=== PATIENT | male | born 1985 | race Caucasian/White ===

== ENCOUNTER 2022-05-20 11:17 | Emergency (ER) | payer OTHER, SELFPAY ==
--- NOTE | ~2022-05-20 | XR_ITS ---
XR hand LT min 3V 05/20/2022 11:40 INDICATION: Left hand pain PROCEDURE: 3 views left hand COMPARISON: No prior studies for comparison. FINDINGS: Fracture, dislocation or subluxation is not identified. The soft tissues appear within norm al limits. No foreign bodies are identified. IMPRESSION: 1: NO ACUTE BONE OR JOINT ABNORMALITY IDENTIFIED. Reviewed, dictated and finalized at location A.
[2022-05-20 11:25] VITALS: BP 135/84; PULSE 97; RESP 22; TEMP 36.8; O2SAT 94
[2022-05-20 11:39] VITALS: BP 135/84; PULSE 97; RESP 22; TEMP 36.8; O2SAT 94
--- NOTE | 2022-05-20 11:58 | ED.GENADULT ---
HPI - General Adult General Chief complaint: Extremity Problem,Nontraumatic Stated complaint: Left Hand Pain Source: patient Mode of arrival: ambulatory Limitations: no limitations History of Present Illness HPI narrative: Patient presents for evaluation of left hand pain for the last week. He cannot identify any precipitating cause or injury. Pain is primarily in the left thumb and shoots from proximal to distal aspect of that digit. He also has symptoms in the left index finger. He reports the pain to be sharp and shooting, rated 8 out of 10 in severity. No loss of range of motion. He does have some numbness and tingling in the affected digit. He is right-hand dominant. He tried taking 800 mg of ibuprofen without considerable improvement in his symptoms or after. Related Data Home Medications Medication Instructions Recorded Confirmed buspirone 10 mg tablet mg 05/20/22 empagliflozin 25 mg tablet mg 05/20/22 (Jardiance) glipizide 10 mg tablet mg 05/20/22 insulin aspart U-100 100 unit/mL subcut 05/20/22 (3 mL) subcutaneous pen (Novolog Flexpen U-100 Insulin aspart) insulin glargine 100 unit/mL (3 unit subcut 05/20/22 mL) subcutaneous pen (Lantus Solostar U-100 Insulin) ipratropium 0.5 mg-albuterol 3 mg ml inhalation 05/20/22 (2.5 mg base)/3 mL nebulization soln metformin 500 mg tablet mg 05/20/22 omeprazole 20 mg capsule,delayed mg 05/20/22 release rosuvastatin 10 mg tablet mg 05/20/22 Allergies Allergy/AdvReac Type Severity Reaction Status Date / Time lorazepam [From Ativan] AdvReac Dizziness Verified 05/20/22 11:37 Review of Systems Review of Systems: CONSTITUTIONAL: Denies fever, chills, or sweats. EYES: Denies visual changes, redness, or discharge. ENT: Denies rhinorrhea, congestion, sore throat, or otalgia. CARDIOVASCULAR: Denies chest pain, palpitations, or edema. RESPIRATORY: Denies cough or dyspnea. GASTROINTESTINAL: Denies abdominal pain, nausea, vomiting, or diarrhea. GENITOURINARY: Denies dysuria or hematuria. SKIN: Denies rash or itching. MUSCULOSKELETAL: Reports pain in left thumb NEUROLOGIC: Reports numbness and tingling in left thumb and index finger. Denies headache, dizziness, or weakness. PSYCHIATRIC: Denies anxiety or depression. [facility] Past Medical History Medical History COPD (chronic obstructive pulmonary disease) Diabetes Surgical History Surgical History History of inguinal hernia repair Family History Family History Mother Family history non-contributory Social History Social History (Updated 05/20/22 @ 12:03 by CLEMENCIA Trent, ) Living arrangements: with family Gender identity (if verbalized by the patient): Male Spiritual care concerns: No Exam Narrative: GENERAL: Well-appearing, well-nourished, and in no acute distress. HEAD: Normocephalic, atraumatic. EYES: PERRLA and EOMI. ENT: Nares clear, no rhinorrhea or epistaxis. Mucous membranes moist. Oropharynx without tonsillar hypertrophy exudate or other lesions. Bilateral TMs pearly pink nonbulging NECK: Supple. No adenopathy or masses. No carotid bruits or JVD CHEST:O2 at 3 L NC. Clear to auscultation. No respiratory distress. No wheezes rales or rhonchi HEART: Regular rate and rhythm. No murmur heard. Normal peripheral pulses. ABDOMEN: Soft, nontender, nondistended, normal active bowel sounds. EXTREMITIES: Full range of motion of the left thumb and left index finger. No crepitus or deformity. No tenderness in either digit. Positive Tinel sign. Positive Phalen sign. SKIN: Warm, dry, no rash. NEURO: No focal deficits. Alert and oriented x3. PSYCH: Normal mood and affect. Course Course Emergency Course: This is a 36-year-old male that presented for evaluation of pain in the left t
== END 2022-05-20 12:19 | disposition home or self-care (01) ==
PROVIDERS: Emergency Provider Nurse Practitioner; PCP Nurse Practitioner Family
DX: M25.542 Pain in joints of left hand (principal); R20.2 Paresthesia of skin; J44.9 Chronic obstructive pulmonary disease, unspecified; E11.9 Type 2 diabetes mellitus without complications
CPT/HCPCS: 73130; 99213; G0463

== ENCOUNTER 2022-06-21 12:33 | Emergency (ER) | payer OTHER, SELFPAY ==
--- NOTE | 2022-06-21 12:41 | ED.BACK ---
HPI - Back Pain/Injury General Chief Complaint: Back Pain/Injury Stated Complaint: Back pain Time Seen by Provider: 06/21/22 12:41 Source: patient and RN notes reviewed History of Present Illness HPI Narrative: Patient is a 37-year-old male who presents to urgent care with complaints of mid back pain radiating to the lower back. Patient states that he noticed approximately 3-4 days ago. He has been taking Tylenol and ibuprofen without much relief. States that he did have a minor fall going up the stairs and catching himself. Otherwise denies of any known injuries or any recent strenuous activity. No other acute complaints. Patient aware of the plan of care. Some parts of this dictation were generated by voice recognition software and may contain typographical and/or grammatical inaccuracies. Related Data Home Medications Medication Instructions Recorded Confirmed buspirone 10 mg tablet 10 mg PO DAILY 05/20/22 06/21/22 empagliflozin 25 mg tablet 25 mg PO DAILY 05/20/22 06/21/22 (Jardiance) glipizide 10 mg tablet 10 mg PO DAILY 05/20/22 06/21/22 insulin aspart U-100 100 unit/mL 30 sliding scale dose subcut 05/20/22 06/21/22 (3 mL) subcutaneous pen (Novolog DIRECTED Flexpen U-100 Insulin aspart) insulin glargine 100 unit/mL (3 100 unit subcut DAILY 05/20/22 06/21/22 mL) subcutaneous pen (Lantus Solostar U-100 Insulin) ipratropium 0.5 mg-albuterol 3 mg 3 ml inhalation PRN PRN Dyspnea 05/20/22 06/21/22 (2.5 mg base)/3 mL nebulization soln metformin 500 mg tablet 500 mg PO DAILY 05/20/22 06/21/22 omeprazole 20 mg capsule,delayed 20 mg PO DAILY 05/20/22 06/21/22 release rosuvastatin 10 mg tablet 10 mg PO DAILY 05/20/22 06/21/22 Allergies Allergy/AdvReac Type Severity Reaction Status Date / Time lorazepam [From Ativan] AdvReac Dizziness Verified 05/20/22 11:37 Review of Systems Review of Systems: CONSTITUTIONAL: Denies fever, chills, or sweats. EYES: Denies visual changes, redness, or discharge. ENT: Denies rhinorrhea, congestion, sore throat, or otalgia. CARDIOVASCULAR: Denies chest pain, palpitations, or edema. RESPIRATORY: Denies cough or dyspnea. GASTROINTESTINAL: Denies abdominal pain, nausea, vomiting, or diarrhea. GENITOURINARY: Denies dysuria or hematuria. SKIN: Denies rash or itching. MUSCULOSKELETAL: Report of mid back pain radiating to the lower back NEUROLOGIC: Denies headache, numbness, or weakness. All other systems reviewed are negative, except as documented in HPI. [facility] Past Medical History Medical History COPD (chronic obstructive pulmonary disease) Diabetes Surgical History Surgical History History of inguinal hernia repair Family History Family History Mother Family history non-contributory Social History Social History (Updated 05/20/22 @ 12:03 by CLEMENCIA Trent, ) Gender identity (if verbalized by the patient): Male Spiritual care concerns: No Comments At the time of my signature, I reviewed and agree with the nursing past medical, surgical, social, and family history. There is no relevant family history pertinent to the patient complaint. Exam Narrative: GENERAL: This is a well-nourished, well-developed patient, in no apparent distress. HEAD: normocephalic, atraumatic. EYES: PERRL. Sclera clear/white. Vision is grossly intact. EARS: External ears normal NOSE: External nose normal with no obvious nasal discharge, nares without redness, no rhinorrhea. THROAT: Mucous membranes moist NECK: Neck supple RESPIRATORY: diminished throughout with slight crackles-history of COPD and current use of oxygen via nasal cannula SKIN: warm, intact with no suspicious lesions or rash, good texture and turgor. NEURO: awake, alert, and oriented to person, place and time. T
[2022-06-21 12:55] VITALS: BP 134/67; PULSE 92; RESP 18; TEMP 36.6; O2SAT 96
== END 2022-06-21 13:17 | disposition home or self-care (01) ==
PROVIDERS: Emergency Provider Nurse Practitioner Family; PCP Nurse Practitioner Family
DX: M54.6 Pain in thoracic spine (principal); J44.9 Chronic obstructive pulmonary disease, unspecified; E11.9 Type 2 diabetes mellitus without complications
CPT/HCPCS: 99213; G0463

== ENCOUNTER 2022-07-22 15:44 | Emergency (ER) | payer OTHER, SELFPAY ==
[2022-07-22 16:13] VITALS: BP 138/85; PULSE 117; RESP 16; TEMP 37.2; O2SAT 95
--- NOTE | 2022-07-22 17:39 | ED.URI ---
HPI - URI/Sore Throat General Chief Complaint: Upper Respiratory Infection Stated Complaint: chills upper respiratory Source: patient Mode of arrival: ambulatory Limitations: no limitations History of Present Illness HPI Narrative: 37-year-old male presents to [facility] with complaints of body aches, chills, headache, nasal congestion sinus pressure since yesterday. Patient reports that he finished a Medrol Dosepak 2 days ago that he received from a local emergency room due to shortness of breath. Patient is on continuous oxygen due to history of COPD. Patient is an ex-smoker. Patient denies recent travel. Patient denies nausea, vomiting, diarrhea, shortness of breath or wheezing. MD elicited complaint: cough, rhinorrhea and nasal congestion Pertinent past history: COPD Onset (ago): day(s) (1) Relieving factors: nothing Treatments prior to arrival: acetaminophen and ibuprofen Related Data Home Medications Medication Instructions Recorded Confirmed buspirone 10 mg tablet 10 mg PO DAILY 05/20/22 07/22/22 empagliflozin 25 mg tablet 25 mg PO DAILY 05/20/22 07/22/22 (Jardiance) glipizide 10 mg tablet 10 mg PO DAILY 05/20/22 07/22/22 insulin aspart U-100 100 unit/mL 30 sliding scale dose subcut 05/20/22 07/22/22 (3 mL) subcutaneous pen (Novolog DIRECTED Flexpen U-100 Insulin aspart) insulin glargine 100 unit/mL (3 100 unit subcut DAILY 05/20/22 07/22/22 mL) subcutaneous pen (Lantus Solostar U-100 Insulin) ipratropium 0.5 mg-albuterol 3 mg 3 ml inhalation PRN PRN Dyspnea 05/20/22 07/22/22 (2.5 mg base)/3 mL nebulization soln metformin 500 mg tablet 500 mg PO DAILY 05/20/22 07/22/22 omeprazole 20 mg capsule,delayed 20 mg PO DAILY 05/20/22 07/22/22 release rosuvastatin 10 mg tablet 10 mg PO DAILY 05/20/22 07/22/22 Allergies Allergy/AdvReac Type Severity Reaction Status Date / Time lorazepam [From Ativan] AdvReac Dizziness Verified 07/22/22 17:24 Review of Systems Constitutional: Constitutional: Reports chills, Reports fatigue, Denies fever(s) and Denies weakness ENT: Denies vertigo and Denies dizziness Cardiovascular: Cardiovascular: Denies chest pain Respiratory: Respiratory: Reports cough, Denies dyspnea and Denies wheezing Gastrointestinal: Gastrointestinal: Denies diarrhea, Denies nausea and Denies vomiting Integumentary/Breasts: Skin/Breast: Denies rash Neurologic: Denies dizziness and Denies syncope Allergic/Immunologic: Allergic/Immunologic: Denies lip swelling, Denies throat swelling, Denies tongue swelling and Denies wheezing PMFSH Past Medical History Medical History COPD (chronic obstructive pulmonary disease) Diabetes Surgical History Surgical History History of inguinal hernia repair Family History Family History Mother Family history non-contributory Social History Social History Gender identity (if verbalized by the patient): Male Spiritual care concerns: No Comments At time of signature, I agree with nursing past medical, surgical, social and family history. There is no relevant family history pertinent to the presenting complaint. Exam Const: General: healthy appearing, no acute distress and alert Nutritional Appearance: well nourished Orientation/consciousness: patient oriented x3 Limitations: no limitations Other: Patient wearing oxygen at time of exam HENMT: Head: normal to inspection Ears: external ears normal, TM's normal bilaterally and EAC's normal Face/Nose/Sinus: Normal external nose present and Normal nares present Face and sinus: normal facial exam Mouth: Yes Normal oral and palatal mucosa present and Yes moist mucous membranes Teeth and gingiva: dentition normal Throat: posterior oropharynx normal and uvula midline
== END 2022-07-22 17:45 | disposition home or self-care (01) ==
PROVIDERS: Emergency Provider Nurse Practitioner Family; PCP Nurse Practitioner Family
DX: B34.9 Viral infection, unspecified (principal); J44.9 Chronic obstructive pulmonary disease, unspecified; Z99.81 Dependence on supplemental oxygen; E11.9 Type 2 diabetes mellitus without complications; Z87.891 Personal history of nicotine dependence
CPT/HCPCS: 87804; 99213; G0463

== ENCOUNTER 2022-09-23 13:00 | Emergency (ER) | payer OTHER, SELFPAY ==
--- NOTE | 2022-09-23 13:05 | ED.URI ---
HPI - URI/Sore Throat General Chief Complaint: Upper Respiratory Infection Stated Complaint: cold Time Seen by Provider: 09/23/22 13:29 Source: patient and RN notes reviewed Mode of arrival: ambulatory Limitations: no limitations History of Present Illness HPI Narrative: 37-year-old male with history of COPD on 3 L of oxygen presents with concern for productive cough, sore throat for 2 days. He denies known sick contacts. He reports he has a nebulizer that he uses at home, has not had an increase in need for that. MD elicited complaint: cough and sore throat Related Data Home Medications Medication Instructions Recorded Confirmed buspirone 10 mg tablet 10 mg PO DAILY 05/20/22 07/22/22 empagliflozin 25 mg tablet 25 mg PO DAILY 05/20/22 07/22/22 (Jardiance) glipizide 10 mg tablet 10 mg PO DAILY 05/20/22 07/22/22 insulin aspart U-100 100 unit/mL 30 sliding scale dose subcut 05/20/22 07/22/22 (3 mL) subcutaneous pen (Novolog DIRECTED FlexPen U-100 Insulin aspart) insulin glargine 100 unit/mL (3 100 unit subcut DAILY 05/20/22 07/22/22 mL) subcutaneous pen (Lantus Solostar U-100 Insulin) ipratropium 0.5 mg-albuterol 3 mg 3 ml inhalation PRN PRN Dyspnea 05/20/22 07/22/22 (2.5 mg base)/3 mL nebulization soln metformin 500 mg tablet 500 mg PO DAILY 05/20/22 07/22/22 omeprazole 20 mg capsule,delayed 20 mg PO DAILY 05/20/22 07/22/22 release rosuvastatin 10 mg tablet 10 mg PO DAILY 05/20/22 07/22/22 albuterol sulfate 2.5 mg/3 mL mg 09/23/22 (0.083 %) solution for nebulization budesonide 0.5 mg/2 mL suspension mg 09/23/22 for nebulization Allergies Allergy/AdvReac Type Severity Reaction Status Date / Time lorazepam [From Ativan] AdvReac Dizziness Verified 07/22/22 17:24 Review of Systems Review of Systems: CONSTITUTIONAL: Reports malaise. Denies chills, sweats, or fever. EYES: Denies visual changes, redness, or discharge. ENT: Reports rhinorrhea, congestion, sore throat. Denies sinus pain, otalgia CARDIOVASCULAR: Denies chest pain, palpitations, or edema. RESPIRATORY: Reports productive cough. Denies dyspnea. GASTROINTESTINAL: Denies abdominal pain, nausea, vomiting, diarrhea SKIN: Denies rash or itching. MUSCULOSKELETAL: Denies myalgia. NEUROLOGIC: Denies headache. All systems reviewed & are unremarkable except as noted in HPI and below PMFSH Past Medical History Medical History COPD (chronic obstructive pulmonary disease) Diabetes Surgical History Surgical History History of inguinal hernia repair Family History Family History Mother Family history non-contributory Social History Social History Living arrangements: with family Gender identity (if verbalized by the patient): Male Spiritual care concerns: No Comments At time of signature, agree with nursing past medical, surgical, social and family history. There is no relevant family history pertinent to the presenting complaint Exam Narrative: GENERAL: Well-appearing, well-nourished, and in no acute distress. HEAD: Normocephalic EYES: PERRLA, conjunctivae clear ENT: Nares clear, turbinates edematous and erythematous, clear discharge. Mucous membranes moist. TM pearly pink with dull light reflex bilaterally; no tragal tenderness. Oropharynx erythematous without lesions. Tonsils not enlarged and without exudate, no drooling, no hoarseness, no trismus, uvula midline. NECK: Supple. No lymphadenopathy CHEST: Clear to auscultation, breath sounds equal. No wheezing, rhonchi, rales, or stridor. No respiratory distress, speaks in full sentences. HEART: Regular rate and rhythm. No murmur heard. SKIN: Warm, dry, no rash. NEURO: Alert and oriented x3. PSYCH: Normal mood and affect Course Course Emergency Cours
[2022-09-23 13:10] VITALS: BP 149/84; PULSE 122; RESP 20; TEMP 37.3; O2SAT 96
== END 2022-09-23 13:47 | disposition home or self-care (01) ==
PROVIDERS: Emergency Provider Nurse Practitioner; PCP Nurse Practitioner Family
DX: J02.0 Streptococcal pharyngitis (principal); J44.9 Chronic obstructive pulmonary disease, unspecified; Z99.81 Dependence on supplemental oxygen; E11.9 Type 2 diabetes mellitus without complications; Z79.4 Long term (current) use of insulin; Z79.84 Long term (current) use of oral hypoglycemic drugs
CPT/HCPCS: 87880; 99213; G0463

== ENCOUNTER 2023-02-15 13:12 | Emergency (ER) | payer OTHER, SELFPAY ==
--- NOTE | ~2023-02-15 | XR_ITS ---
EXAMINATION: XR chest 2V DATE: 02/15/2023 13:56 INDICATION: New onset cough TECHNIQUE: PA and lateral views of the chest were obtained. COMPARISON: None FINDINGS: Mild hyperexpansion of lungs with increased retrosternal clear space and flattening of the diaphragm suggestive but not diagnostic of obstructive pulmonary disease. Calcified left lower lobe nodule cons istent with old granulomatous disease. No other airspace opacities, pulmonary edema, pleural effusion or pneumothorax. Heart size is normal. Mild thoracic spondylosis. IMPRESSION: 1. Hyperexpansion lungs suggestive but not diagnostic of COPD. No other acute cardiopulmonary disease . Reviewed, dictated and finalized at location A. IMPRESSION: 1. Hyperexpansion lungs suggestive but not diagnostic of COPD. No other acute c ardiopulmonary disease.
[2023-02-15 13:20] VITALS: BP 120/78; PULSE 109; RESP 18; TEMP 37.1; O2SAT 94
--- NOTE | 2023-02-15 13:33 | ED.URI ---
HPI - URI/Sore Throat General Chief Complaint: Upper Respiratory Infection Stated Complaint: THROAT HURTS,COUGH, NOT FEELING WELL Source: patient and RN notes reviewed History of Present Illness HPI Narrative: 37 yo M with hx of DM and COPD, presents to urgent care with complaints of a sore throat and cough that started last night. Pt reports productive cough. Denies any congestion, ear pain, fevers, chills, JIMENEZ, vomiting, SOB, or chest pain. Pt is currently on 3L nc which is what he wears continuously. Related Data Home Medications Medication Instructions Recorded Confirmed buspirone 10 mg tablet 10 mg PO DAILY 05/20/22 02/15/23 empagliflozin 25 mg tablet 25 mg PO DAILY 05/20/22 02/15/23 (Jardiance) glipizide 10 mg tablet 10 mg PO DAILY 05/20/22 02/15/23 insulin aspart U-100 100 unit/mL 30 sliding scale dose subcut 05/20/22 02/15/23 (3 mL) subcutaneous pen (Novolog DIRECTED FlexPen U-100 Insulin aspart) insulin glargine 100 unit/mL (3 100 unit subcut DAILY 05/20/22 02/15/23 mL) subcutaneous pen (Lantus Solostar U-100 Insulin) ipratropium 0.5 mg-albuterol 3 mg 3 ml inhalation PRN PRN Dyspnea 05/20/22 02/15/23 (2.5 mg base)/3 mL nebulization soln metformin 500 mg tablet 500 mg PO DAILY 05/20/22 02/15/23 omeprazole 20 mg capsule,delayed 20 mg PO DAILY 05/20/22 02/15/23 release rosuvastatin 10 mg tablet 10 mg PO DAILY 05/20/22 02/15/23 albuterol sulfate 2.5 mg/3 mL See Rx Instructions .Route .COMPLEX 09/23/22 02/15/23 (0.083 %) solution for nebulization budesonide 0.5 mg/2 mL suspension See Rx Instructions .Route .COMPLEX 09/23/22 for nebulization rosuvastatin 10 mg tablet mg 02/15/23 02/15/23 Allergies Allergy/AdvReac Type Severity Reaction Status Date / Time lorazepam [From Ativan] AdvReac Dizziness Verified 02/15/23 13:21 Review of Systems Review of Systems: Pertinent positives and pertinent negatives per HPI. [facility] Past Medical History Medical History COPD (chronic obstructive pulmonary disease) Diabetes Surgical History Surgical History History of inguinal hernia repair Family History Family History Mother Family history non-contributory Social History Social History Living arrangements: with family Gender identity (if verbalized by the patient): Male Spiritual care concerns: No Comments At the time of my signature, I reviewed and agree with the nursing past medical, surgical, social, and family history. There is no relevant family history pertinent to the patient complaint. Exam Narrative: GENERAL: This is a well-nourished, well-developed patient, in no apparent distress. HEAD: normocephalic, atraumatic. EYES: Sclera clear/white. Vision is grossly intact. EARS: External ears normal, auditory canals clear and without drainage, TMs normal without perforation. Hearing grossly intact. NOSE: External nose normal with no obvious nasal discharge, nares without redness, no rhinorrhea. THROAT: Mucous membranes moist, posterior pharynx erythremic. No exudate noted. NECK: Neck supple, non-tender without lymphadenopathy, masses or thyromegaly. CARDIOVASCULAR: Regular rate and rhythm without murmurs, gallops, or rubs. RESPIRATORY: Diminished throughout. Productive cough noted in exam room. SKIN: warm, intact with no suspicious lesions or rash, good texture and turgor. NEURO: awake, alert, and oriented to person, place and time. There were no obvious focal neurologic abnormalities. EXTREMITIES: No clubbing, cyanosis, or edema. No joint tenderness, effusion, or edema noted. BACK: Nontender without deformity or crepitus. No flank tenderness. Course Course Level of Care: Express Care Visit Vital Signs Vital signs: Vital Signs Temperature 98.
[2023-02-15] MEDS: predniSONE 20 MG TABLET 60 MG PO (14:15)
== END 2023-02-15 14:20 | disposition home or self-care (01) ==
PROVIDERS: Emergency Provider Nurse Practitioner Family; PCP Nurse Practitioner Family
DX: J40 Bronchitis, not specified as acute or chronic (principal); J02.9 Acute pharyngitis, unspecified; J44.9 Chronic obstructive pulmonary disease, unspecified; E11.9 Type 2 diabetes mellitus without complications; Z79.4 Long term (current) use of insulin; Z79.84 Long term (current) use of oral hypoglycemic drugs
CPT/HCPCS: 71046; 87081; 87880; 99213; G0463; J7512